=== PATIENT | female | born 1945 | race Caucasian/White ===

== ENCOUNTER → 2016-10-16 | Outpatient (CLI) | payer MEDICARE, OTHER | LOC: GMAM 11:53 | PROVIDERS: ATTEND Family Medicine | DX: R39.15 Urgency of urination (principal); R39.198 Other difficulties with micturition; E03.9 Hypothyroidism, unspecified; E55.9 Vitamin D deficiency, unspecified ==

== ENCOUNTER → 2017-05-04 | Outpatient (CLI) | payer MEDICARE, OTHER | END | disposition home or self-care (01) | LOC: GMAM 10:43 | PROVIDERS: ATTEND Family Medicine | DX: E03.9 Hypothyroidism, unspecified (principal); N39.0 Urinary tract infection, site not specified; E55.9 Vitamin D deficiency, unspecified ==

== ENCOUNTER → 2017-11-27 | Outpatient (CLI) | payer OTHER | LOC: GMAM 10:23 | PROVIDERS: ATTEND Family Medicine | DX: E03.9 Hypothyroidism, unspecified (principal); E55.9 Vitamin D deficiency, unspecified ==

== ENCOUNTER → 2018-01-01 | Outpatient (CLI) | payer OTHER | END | disposition home or self-care (01) | LOC: GMAM 10:29 | PROVIDERS: ATTEND Family Medicine | DX: E03.9 Hypothyroidism, unspecified (principal) ==

== ENCOUNTER → 2018-03-04 | Outpatient (CLI) | payer OTHER | LOC: GMAM 14:27 | PROVIDERS: ATTEND Family Medicine | DX: E55.9 Vitamin D deficiency, unspecified (principal); E53.8 Deficiency of other specified B group vitamins; E03.9 Hypothyroidism, unspecified ==

== ENCOUNTER 2018-08-16 05:47 | Day surgery (SDC) | payer OTHER ==
[2018-08-16] MEDS ORDERED: TROP 1%/CYCLOPEN 1%/PHENYL 2% DROPS OPHTH ONE (05:48)
[2018-08-16] MEDS ORDERED: MIDAZOLAM INJ 2 MG/2 ML VIAL ONE ×2 (06:48→13:01)
[2018-08-16] MEDS ORDERED: PROPARACAINE 0.5% OPHTH SOL 15 ML BTTL RIGHT_EYE ONE (13:06)
[2018-08-16] MEDS ORDERED: TOBRAMYCIN SULF 0.3 % OPHT SOL 1 DROP RIGHT_EYE ONE ×2 (13:15→13:25)
[2018-08-16] MEDS ORDERED: DEXAMETHASONE 0.1% OPHTH SOL 1 DROP RIGHT_EYE ONE ×2 (13:15→13:25)
[2018-08-16] MEDS ORDERED: LIDOCAINE 1% 2 ML VIAL INJ ONE (13:15)
[2018-08-16] MEDS ORDERED: BRIMONIDINE 0.2% OPHTH DROPS RIGHT_EYE ONE ×2 (13:15→13:25)
== END 2018-08-16 14:03 | disposition home or self-care (01) ==
LOC: AMB 05:47
PROVIDERS: ATTEND Ophthalmology
DX: H25.11 Age-related nuclear cataract, right eye (principal); E66.9 Obesity, unspecified; Z88.2 Allergy status to sulfonamides; Z88.0 Allergy status to penicillin; Z88.5 Allergy status to narcotic agent; Z79.82 Long term (current) use of aspirin; Z79.899 Other long term (current) drug therapy
CPT/HCPCS: 00142; 66984; J2250

== ENCOUNTER 2018-08-30 05:46 | Day surgery (SDC) | payer OTHER ==
[2018-08-30] MEDS ORDERED: PROPARACAINE 0.5% OPHTH SOL 15 ML BTTL ONE (08:24)
[2018-08-30] MEDS ORDERED: TROP 1%/CYCLOPEN 1%/PHENYL 2% DROPS ONE (08:24)
[2018-08-30] MEDS ORDERED: DEXAMETHASONE 0.1% OPHTH SOL 1 DROP LEFT_EYE ONE ×2 (11:02→11:19)
[2018-08-30] MEDS ORDERED: BRIMONIDINE 0.2% OPHTH DROPS LEFT_EYE ONE ×2 (11:02→11:19)
[2018-08-30] MEDS ORDERED: TOBRAMYCIN SULF 0.3 % OPHT SOL 1 DROP LEFT_EYE ONE ×2 (11:02→11:19)
[2018-08-30] MEDS ORDERED: LIDOCAINE 1% MPF 5 ML VIAL INJ ONE (11:02)
[2018-08-30] MEDS ORDERED: MIDAZOLAM INJ 2 MG/2 ML VIAL ONE (11:13)
== END 2018-08-30 11:56 | disposition home or self-care (01) ==
LOC: AMB 05:46
PROVIDERS: ATTEND Ophthalmology
DX: H25.12 Age-related nuclear cataract, left eye (principal); I10 Essential (primary) hypertension; E66.9 Obesity, unspecified; R56.9 Unspecified convulsions; Z88.0 Allergy status to penicillin; Z88.5 Allergy status to narcotic agent; Z88.2 Allergy status to sulfonamides; Z88.8 Allergy status to other drugs, medicaments and biological substances
CPT/HCPCS: 00142; 66984; J2250

== ENCOUNTER → 2018-09-13 | Outpatient (CLI) | payer OTHER | LOC: GMAM 09:28 | PROVIDERS: ATTEND Family Medicine | DX: E03.9 Hypothyroidism, unspecified (principal); E55.9 Vitamin D deficiency, unspecified ==

== ENCOUNTER → 2018-09-22 | Outpatient (CLI) | payer OTHER | LOC: GMAM 11:36 | PROVIDERS: ATTEND Family Medicine | DX: E53.8 Deficiency of other specified B group vitamins (principal); E03.9 Hypothyroidism, unspecified ==

== ENCOUNTER → 2019-01-03 | Outpatient (CLI) | payer OTHER ==
--- NOTE | 2019-01-03 20:56 | MRI ---
EXAM DESCRIPTION: Lumbar Spine w/o Contrast : Magnetic Resonance Imaging. CLINICAL HISTORY: LUMBOSACRAL RADICULOPATHY COMPARISON: Noncontrast MRI scan lumbar spine 06/11/2016. TECHNIQUE: Multiplanar, multiple standard sequences, non contrast MRI, lumbar spine. FINDINGS: L5-S1: Disc space maintained with disc desiccation. Posterior tiny midline bulge. Significantly smaller bulge since the prior study. Bilateral Modic type II endplate reactive changes are minimal. Bilateral hypertrophic facet arthrosis and hypertrophic flavum ligaments on the left. AP canal diameter 12 mm. Mild to moderate left foraminal narrowing with mild right foraminal narrowing. Changes in the right lamina and flavum ligament may be due to previous discectomy and decompression. L4-L5: Disc desiccation and minimal disc space loss more on the right with Modic type II endplate reactive changes. Disc spur complex encroaching on the right foramen abutting the right L4 nerve. Trace anterolisthesis. Tiny posterior disc bulge. Left foramen is patent. Moderate hypertrophic facet arthrosis and ligament enlargement with AP canal diameter 8 mm. Stable since the prior study. L3-L4: Disc desiccation with disc space preserved. Tiny posterior bulge. Facet hypertrophic arthrosis and flavum ligament enlargement more left than right. AP canal diameter 9 mm. Tiny disc bulge into the left foramen. Minimal foraminal narrowing more on the left. Stable since the prior study. L2-L3: Disc desiccation with disc space preserved. No bulging. Minimal hypertrophy of the flavum ligaments. Canal and foramina are patent. Stable circumscribed hyperintense T1 and T2 lesions in the L3 vertebral body consistent with hemangiomas. L1-L2: Normal signal in the disc with disc space preserved. Posterior elements unremarkable. Canal and foramina are patent. Stable since the prior study. T12-L1: Normal signal in the disc with disc space preserved. Posterior elements unremarkable. Canal and foramina are patent. Conus terminates at this level. No significant scoliosis. Paravertebral soft tissues paraspinal muscle atrophy. Postsurgical changes to the right of midline. Not present on the prior study. Normal marrow signal in the remaining vertebral bodies and the posterior elements. Vertebral bodies are not compressed at any level. IMPRESSION: 1. Partial discectomy at L5-S1 and right laminar and facet decompression also performed. Moderate canal narrowing. Stable minimal spondylosis bilaterally. 2. Moderate spondylosis on the right with disc spur complex abutting the exiting right L4 nerve. Stable since the prior study. Trace 1 anterolisthesis and significant hypertrophic arthrosis and posterior facet and ligaments resulting in mild to moderate canal stenosis, stable since the prior study. 3. Tiny posterior L3-4 disc bulge with hypertrophic flavum ligaments and facets causing mild central canal stenosis unchanged since the prior study.. Electronically signed by: Javan Zepeda MD 01/03/2019 8:53 PM CDT
== END ==
LOC: MRI 10:53
PROVIDERS: ATTEND Family Medicine
DX: M51.16 Intervertebral disc disorders with radiculopathy, lumbar region (principal); M47.896 Other spondylosis, lumbar region; M48.061 Spinal stenosis, lumbar region without neurogenic claudication; Z98.890 Other specified postprocedural states

== ENCOUNTER → 2019-03-14 | Outpatient (CLI) | payer OTHER | LOC: GMAM 08:43 | PROVIDERS: ATTEND Family Medicine | DX: E53.8 Deficiency of other specified B group vitamins (principal); E03.9 Hypothyroidism, unspecified; E55.9 Vitamin D deficiency, unspecified; I10 Essential (primary) hypertension ==

== ENCOUNTER 2019-03-15 20:00 | Emergency (ER) | payer OTHER ==
[2019-03-15] MEDS ORDERED: LIDOCAINE 1% W/ EPINEPHRINE 20 ML VIAL INJ ONE (20:09)
--- NOTE | 2019-03-15 21:07 | ED.PDOC ---
History of Present Illness - General Chief Complaint: Skin/Abrasion/Tear Stated Complaint: scratch by dog left hand Time Seen by Provider: 03/15/19 20:01 Source: patient Exam Limitations: no limitations - History of Present Illness Initial Comments: Luz Velasquez 73 y/o female stated that her dog was chasing a rabbit then the dog jump into her and scratching her left hand and noted bleeding with skin tear on the left hand. Timing/Duration: just prior to arrival Severity: moderate Location: extremities - left hand Improving Factors: nothing Worsening Factors: movement Associated Symptoms: other - pain/bleeding Allergies/Adverse Reactions: Allergies Bupivacaine [From Marcaine HCl] Allergy (Verified 08/30/18 10:14) Codeine Allergy (Verified 08/30/18 10:14) Hydrocodone Allergy (Verified 08/30/18 10:14) Morphine Allergy (Verified 08/30/18 10:14) Penicillins Allergy (Verified 08/30/18 10:14) Sulfa Antibiotics Allergy (Verified 08/30/18 10:14) Home Medications: Ambulatory Orders Aspirin [Aspirin Childrens] 81 mg PO DAILY 03/15/19 Atorvastatin Calcium [Lipitor] 10 mg PO DAILY 03/15/19 Clindamycin HCl 300 mg PO TID 7 Days #42 cap 03/15/19 Tramadol HCl 50 mg PO Q4HR PRN #20 tab 03/15/19 Review of Systems - Review of Systems Skin: States: see HPI All other Systems: Reviewed and Negative, No Change from Baseline Past Medical History (General) - Patient Medical History Hx Diabetes: No Hx MRSA: No Surgical History: other - hysterectomy,cataract Family Medical History - Family History Mother Family History: Unknown Physical Exam - Physical Exam General Appearance: Alert, Comfortable, No apparent distress Eyes, Ears, Nose, Throat Exam: normal ENT inspection Neck: supple, normal inspection Cardiovascular/Chest: normal peripheral pulses, regular rate, rhythm, no murmur Respiratory: lungs clear, normal breath sounds Gastrointestinal/Abdominal: normal bowel sounds, non tender, soft Back Exam: normal inspection Extremity: no pedal edema, no calf tenderness Neurologic: alert, oriented x 3 Skin Exam: other - skin loss with bleedinnote superficial veins Skin Character: other - skin avulsion Lymphatic: no adenopathy Progress - Progress Progress: 03/15/19 21:09 Vital Signs - 8 hr 03/15/19 20:21 Pulse Rate [ 92 H Right Radial] Respiratory 20 Rate Blood Pressure 176/122 [Right Arm] O2 Sat by Pulse 99 Oximetry 03/15/2019 Vigorously irrigated with sterile NS 50 cc then used H2O2 for chemical cauterization;followed by suture ligation of venous bleeders uncontrolled with pressure then surgicell applied followed by pressure dressing. Departure - Departure Clinical Impression: Dog scratch Avulsion of skin of hand Qualifiers: Encounter type: initial encounter Laterality: left Qualified Code(s): S61.402A - Unspecified open wound of left hand, initial encounter Time of Disposition: 21:16 Disposition: Discharge to Home or Self Care Condition: Fair Departure Forms: ED Discharge - Pt. Copy, Patient Portal Self Enrollment Instructions: DI for Wound Infection Referrals: Zach Delgado MD [Primary Care Provider] - 1-2 Weeks Prescriptions: Tramadol HCl 50 mg PO Q4HR PRN #20 tab PRN Reason: Pain Clindamycin HCl 300 mg PO TID 7 Days #42 cap Home Medications: Ambulatory Orders Aspirin [Aspirin Childrens] 81 mg PO DAILY 03/15/19 Atorvastatin Calcium [Lipitor] 10 mg PO DAILY 03/15/19 Clindamycin HCl 300 mg PO TID 7 Days #42 cap 03/15/19 Tramadol HCl 50 mg PO Q4HR PRN #20 tab 03/15/19 Additional Instructions: Follow up with Emergency Room [facility] 17 March 2019 for wound re check Elevate left hand 20 degrees at bedtime until better;Continue with all home medications
[2019-03-15] MEDS ORDERED: CLINDAMYCIN PHOSPHATE 150 MG/ML VIAL IM ONE (21:14)
[2019-03-15] MEDS ORDERED: CLINDAMYCIN HCL CAP 150 MG CAP PO ONE (21:14)
[2019-03-15] MEDS ORDERED: TETANUS,DIPHTHERIA,PERTUSSIS 1 EA SYG IM ONE (21:15)
[2019-03-15] MEDS ORDERED: traMADol HCL 50 MG (ER DISP) # 6 TABS PO ONE (21:16)
[2019-03-15 21:47] VITALS: BP 163/84; TEMP 97.3; O2SAT 69
== END 2019-03-15 21:40 | disposition home or self-care (01) ==
LOC: ER 20:00
DX: S61.412A Laceration without foreign body of left hand, initial encounter (principal); W54.1XXA Struck by dog, initial encounter; Z79.82 Long term (current) use of aspirin; Z79.899 Other long term (current) drug therapy; Z88.5 Allergy status to narcotic agent; Z88.0 Allergy status to penicillin; Z88.2 Allergy status to sulfonamides; Z88.8 Allergy status to other drugs, medicaments and biological substances; Y92.9 Unspecified place or not applicable
CPT/HCPCS: 90471; 90715; J3490

== ENCOUNTER → 2019-06-01 | Outpatient (CLI) | payer OTHER | LOC: GMAM 15:00 | PROVIDERS: ATTEND Family Medicine | DX: R06.02 Shortness of breath (principal) ==

== ENCOUNTER → 2019-06-02 | Outpatient (CLI) | payer OTHER ==
--- NOTE | 2019-06-02 17:31 | CT ---
EXAM DESCRIPTION: Chest w/Contrast : Computed Tomography. CLINICAL HISTORY: 73 years Female SHORTNESS OF BREATH COMPARISON: Chest x-ray July 2018. TECHNIQUE: Spiral-axial scans at 5 x 5 mm intervals through the lungs and thorax with IV contrast. 2.5 x 5 mm lung algorithm axial reconstructions. 2.0 Mm reconstructions. No adverse reactions. Total Exam DLP: 442.6 mGy-cm. This exam was performed according to our departmental dose-optimization program which includes automated exposure control, adjustment of the mA and/or kV according to patient size and/or use of iterative reconstruction technique; to reduce radiation dose to as low as reasonably achievable (ALARA). Nodule measurements under 10 mm are given as mean value of 3 axes diameters. FINDINGS: Lungs and large airways: 3.7 mm solid nodule in the left apex on axial series 4, image 27. No larger nodules or masses. No focal infiltrates. Pleural spaces: Negative. Mediastinum and Alva: Small lymph nodes. No dominant soft tissue masses. Great vessels and Heart: Atherosclerotic calcification of the aortic arch and descending thoracic aorta. Soft tissues of neck base, axillae, and chest wall: Possible reactive lymph node left axilla measuring 1.3 x 1.0 cm. Coronal series 602, image 83. Bilateral subglandular breast implants with possible intracapsular rupture, posteriorly, on the right. bilateral small capsular calcifications. Upper abdomen: Included peritoneal space with no fluid or free air. No focal abnormalities in the spleen or adrenal glands. Surgical clips in the gallbladder fossa with no fluid. Moderate hiatal hernia. Osseous structures: Minimal spondylosis midthoracic spine. No lytic or blastic lesions. Minimal arthrosis bilateral AC joints. IMPRESSION: 1. 3.7 mm solid pulmonary nodule posterior left lung apex. No larger nodules or masses. No infiltrates. [facility] Best Practice recommendations: 3.7 mm solid pulmonary nodule within the upper lobe. If patient is low risk for malignancy, no routine follow-up imaging is recommended; if patient is high risk for malignancy, a non-contrast Chest CT at 12 months is optional. If performed and the nodule is stable at 12 months, no further follow-up is recommended. These guidelines do not apply to immunocompromised patients and patients with cancer. Follow up in patients with significant comorbidities as clinically warranted. For lung cancer screening, adhere to Lung-RADS guidelines. Reference: Radiology. 2017; 284(1):228-43. 2. Patient with bilateral subglandular breast implants with possible intracapsular rupture on the right. Possible right axillary reactive lymph node. No record of mammographic screening at this facility. Consider bilateral diagnostic digital mammographic evaluation, or enrolling patient in breast mammographic screening program at this facility, or right axillary ultrasound evaluation. Electronically signed by: Javan Zepeda MD 06/02/2019 5:29 PM CDT
== END ==
LOC: CT 08:45
PROVIDERS: ATTEND Family Medicine
DX: R91.1 Solitary pulmonary nodule (principal); Z98.82 Breast implant status

== ENCOUNTER → 2019-07-13 | Outpatient (CLI) | payer OTHER ==
--- NOTE | 2019-07-14 16:09 | CT ---
TECHNIQUE: Volumetric CT angiographic data acquisition obtained of the head and neck using CTA head and neck protocol following the intravenous administration of contrast. Axial reconstructions submitted. Coronal, oblique and sagittal MIP slab reconstructions also performed on computer workstation. 3D MIP reformats provided. Grading system is mild <50%, moderate 50-69%, and severe 70% and greater. This exam was performed according to our departmental dose-optimization program, which includes automated exposure control, adjustment of the mA and/or kV according to patient size and/or use of iterative reconstruction technique. CLINICAL HISTORY PROVIDED: OCCLUSION AND STENOSIS OR CAROTID ARTERIES COMPARISON: June 02, 2019 FINDINGS: Aorta / Proximal Great Vessels : Unremarkable. Right Carotid: Minimal atherosclerotic plaque at the origin of the right internal carotid artery. No hemodynamically significant stenosis. No occlusion or dissection. Right Vertebral: Unremarkable. No stenosis, occlusion, or dissection. Left Carotid: Minimal atherosclerotic plaque at the carotid bulb. No hemodynamically significant stenosis. No dissection or occlusion. Left Vertebral: Unremarkable. No stenosis, occlusion, or dissection. Visible Intracranial Vasculature: Unremarkable. No stenosis, occlusion, or dissection. Incidental Findings: Redemonstrated left upper lobe sub-6 mm pulmonary nodule (recommendations are unchanged from the 06/02/2019 examination). IMPRESSION: No significant stenosis, occlusion, or dissection of the carotid or vertebral circulations. Electronically signed by: Kraig Bhatia MD 07/14/2019 4:07 PM CDT
== END ==
LOC: CT 09:24
PROVIDERS: ATTEND Family Medicine
DX: I65.23 Occlusion and stenosis of bilateral carotid arteries (principal)

== ENCOUNTER → 2020-02-28 | Outpatient (CLI) | payer OTHER | LOC: GMAM 12:09 | PROVIDERS: ATTEND Family Medicine | DX: E53.8 Deficiency of other specified B group vitamins (principal); E55.9 Vitamin D deficiency, unspecified; E03.9 Hypothyroidism, unspecified; E78.2 Mixed hyperlipidemia; E21.5 Disorder of parathyroid gland, unspecified ==

== ENCOUNTER → 2020-05-21 | Outpatient (CLI) | payer OTHER | END | disposition home or self-care (01) | LOC: LAB.O 07:31 | PROVIDERS: ATTEND Internal Medicine | DX: I10 Essential (primary) hypertension (principal); E55.9 Vitamin D deficiency, unspecified; E03.9 Hypothyroidism, unspecified; M81.0 Age-related osteoporosis without current pathological fracture; E53.8 Deficiency of other specified B group vitamins; M81.8 Other osteoporosis without current pathological fracture ==

== ENCOUNTER → 2020-06-05 | Outpatient (CLI) | payer OTHER ==
--- NOTE | 2020-06-05 12:10 | CT ---
EXAM DESCRIPTION: Chest w/o Contrast : Computed Tomography. CLINICAL HISTORY: 74 years Female SOLITARY PULMONARY NODULE COMPARISON: CT chest May 2019. TECHNIQUE: Spiral-axial scans at 5 x 5 mm intervals through the lungs and thorax without IV contrast. 2.5 x 5 mm lung algorithm axial reconstructions. : Sagittal 2.0 Mm reconstructions. No adverse reactions. Total Exam DLP: 660.4 mGy-cm. This exam was performed according to our departmental dose-optimization program which includes automated exposure control, adjustment of the mA and/or kV according to patient size and/or use of iterative reconstruction technique; to reduce radiation dose to as low as reasonably achievable (ALARA). Nodule measurements under 10 mm are given as mean value of 3 axes diameters. FINDINGS: Lungs and large airways: 3.5 mm nodule medial left apex is stable. Minimal bilateral perihilar peribronchial wall cuffing stable. No new abnormal nodules. No masses. Bilateral parenchymal pleural scarring is stable. No acute infiltrate. Pleural spaces: Bilateral focal and diffuse thickening, especially apices, stable. No acute process. Mediastinum and Alva: Evaluation limited due to lack of IV contrast small mediastinal nodes are stable. No dominant soft tissue mass. Stable large hiatal hernia.. Great vessels and Heart: Evaluation limited due to lack of IV contrast. Left main coronary artery calcifications. Atherosclerotic calcifications aorta. No change. Soft tissues of neck base, axillae, and chest wall: Evaluation limited due to lack of IV contrast. Bilateral subglandular breast implants. Low-density and folds in the posterior superior right implant are stable. Small axillary nodes unchanged. Upper abdomen: No free air or free fluid in the included peritoneal space. Normal density of the included organs. Surgical clips gallbladder fossa with no fluid. Radiodense fluid posterior distal stomach. Osseous structures: Thoracic kyphosis and lower cervical lordosis unchanged. Left glenohumeral arthrosis stable. No acute bony abnormality. IMPRESSION: 1. Stable 3.5 mm nodule with no clinical significance in the left upper lobe apex. Stable bilateral focal and diffuse pleural thickening. No new nodules and no masses. No acute infiltrate. No further chest CT follow-up is recommended. Electronically signed by: Javan Zepeda MD 06/05/2020 12:08 PM CDT
== END ==
LOC: CT 08:21
PROVIDERS: ATTEND Family Medicine
DX: R91.1 Solitary pulmonary nodule (principal)

== ENCOUNTER → 2020-08-06 | Outpatient (CLI) | payer OTHER | LOC: GMAM 11:02 | PROVIDERS: ATTEND Family Medicine | DX: I10 Essential (primary) hypertension (principal); E53.8 Deficiency of other specified B group vitamins; E03.9 Hypothyroidism, unspecified; E55.9 Vitamin D deficiency, unspecified; E78.2 Mixed hyperlipidemia ==

== ENCOUNTER → 2020-08-30 | Outpatient (CLI) | payer OTHER ==
--- NOTE | 2020-09-03 14:07 | MAM ---
EXAM DESCRIPTION: 3D Screening BILATERAL : Digital Mammography. CLINICAL HISTORY: 74 years Female SCREEN . No complaints. Remote family history of breast cancer. Menarche age 16. Internal age 24. Menopause age unknown. No HRT. Bilateral breast augmentation.. Lifetime risk of developing breast cancer (Tyrer-Cuzick model)(%): 4.2. COMPARISON: Baseline study at this facility. Prior studies from outside imaging facility not yet available. No prior reports available. TECHNIQUE: Bilateral CC and MLO projection full-field images, with Lisa Implant Displacement digital tomosynthesis mammographic technique. Bilateral 2-D digital full-field images, MLO and CC projections, non-displaced. Bilateral digital 2-D full-field MLO images. With Lisa implant displacement. CAD available for 2-D images. FINDINGS: The breast parenchymal density pattern is: Scattered areas of fibroglandular density. Bilaterally implants are retroglandular. Solitary calcification medial left breast. Focal asymmetry versus mass density 2:00 position 3 cm from the left nipple. No skin thickening or nipple retraction IMPRESSION: BI-RADS CATEGORY: 0 - INCOMPLETE- Need additional imaging evaluation. RECOMMENDATIONS: FOLLOW-UP: Recall for additional imaging: Directed left breast ultrasound in the region of interest.. Written communication concerning the IMPRESSION and Follow-up, will be mailed to the patient and referring health care provider. Electronically signed by: Javan Zepeda MD 09/03/2020 2:06 PM [facility]
== END ==
LOC: MAMMO 12:47
PROVIDERS: ATTEND Family Medicine
DX: Z12.31 Encounter for screening mammogram for malignant neoplasm of breast (principal); Z98.82 Breast implant status

== ENCOUNTER → 2020-10-29 | Outpatient (CLI) | payer MEDICARE, OTHER | LOC: GMAM 17:54 | PROVIDERS: ATTEND Family Medicine | DX: R30.0 Dysuria (principal) ==

== ENCOUNTER → 2020-11-28 | Outpatient (CLI) | payer MEDICARE, OTHER ==
--- NOTE | 2020-11-29 11:44 | US ---
EXAM DESCRIPTION: Carotid Duplex: ULTRASOUND. CLINICAL HISTORY: 75 years Female occlusion and stenosis of bilateral carotid arteries COMPARISON: None. TECHNIQUE: Transcutaneous scanning utilizing orlando-scale and Doppler modes to evaluate the bilateral carotid systems and vertebral arteries. Percentage of diameter of stenosis or no stenosis recorded will be based upon NASCET criteria. FINDINGS: Peak systolic/end diastolic velocities (CM-Sec) CCA Right 72/12 Left 58/12. ICA Right proximal 75/6, mid 70/7. Left proximal 56/19, mid 55/17. Vertebral Right 41/7 Left 42/9. ECA (PS Only) Right 85 left 49. ICA/CCA peak systolic velocity ratio: Right 1.0 Left 1.0 ICA/CCA end diastolic velocity ratio: Right 0.5 Left 1.6 Vertebral arteries: antegrade flow. Comments Comments: Bilateral atherosclerotic calcified plaques. Area and diameter stenosis right ICA less than 25%. Area and diameter stenosis left CCA bulb less than 15%. IMPRESSION: 1. Doppler evaluation of the bilateral carotid systems and vertebral arteries shows no hemodynamically significant stenoses (less than 70%). 2. No significant amount of plaque in the carotid arteries bilaterally. Bilateral vertebral arteries showed antegrade-cephalad flow. Electronically signed by: Javan Zepeda MD 11/29/2020 11:43 AM [facility]
== END ==
LOC: ECHO 08:52
PROVIDERS: ATTEND Family Medicine
DX: I65.23 Occlusion and stenosis of bilateral carotid arteries (principal); I50.32 Chronic diastolic (congestive) heart failure; I51.7 Cardiomegaly